=== PATIENT | male | born 1965 | race Caucasian/White ===

== ENCOUNTER 2020-04-08 20:22 | Observation (INO) | payer OTHER ==
[~2020-04-08] VITALS: Ht 170.2 cm; Wt 86.2 kg
[2020-04-09 06:17] LABS: BUN/CREATININE RATIO 16 (0-10)
== END 2020-04-09 20:01 | disposition short-term general hospital (02) ==
LOC: MED SURG 4 20:22
PROVIDERS: ADMIT Internal Medicine
PROC: 4A023N7 Measurement of Cardiac Sampling and Pressure, Left Heart, Percutaneous Approach (ICD-10-PCS; principal; 2020-04-09)
PROC: B2111ZZ Fluoroscopy of Multiple Coronary Arteries using Low Osmolar Contrast (ICD-10-PCS; 2020-04-09)
PROC: B2151ZZ Fluoroscopy of Left Heart using Low Osmolar Contrast (ICD-10-PCS; 2020-04-09)
PROC: B2181ZZ Fluoroscopy of Left Internal Mammary Bypass Graft using Low Osmolar Contrast (ICD-10-PCS; 2020-04-09)
DX: I21.4 Non-ST elevation (NSTEMI) myocardial infarction (principal); I25.110 Atherosclerotic heart disease of native coronary artery with unstable angina pectoris; F17.290 Nicotine dependence, other tobacco product, uncomplicated; Z20.822 Contact with and (suspected) exposure to COVID-19
CPT/HCPCS: 36415; 75710; 80048; 80061; 82550; 82553; 84439; 84443; 84484; 93005; 96372; 99152; 99153; C1760; C1769; G0378; G0379; J0461; J1644; J1650; J2250; J3010; Q9967

== ENCOUNTER 2021-11-06 12:05 | Inpatient (IN) | payer OTHER ==
[~2021-11-06] VITALS: Ht 170.2 cm; Wt 81.6 kg
[2021-11-06 12:44] LABS: HEMOGLOBIN 13.8 gm/dl (14.0-17.5); RED BLOOD COUNT 4.53 M/UL (4.20-5.50); WHITE BLOOD COUNT 7.5 K/UL (4.5-11.0)
[2021-11-06 13:05] LABS: BUN/CREATININE RATIO 19 (0-10)
[2021-11-06] MEDS ORDERED: ATORVASTATIN CA20 MG PO (16:44)
[2021-11-06] MEDS ORDERED: LORATADINE10 MG PO (16:48)
[2021-11-06] MEDS ORDERED: ONE-A-DAY MEN'1 EACH PO (16:48)
[2021-11-06] MEDS ORDERED: ASPIRIN EC81 MG PO (16:48)
[2021-11-06] MEDS ORDERED: HYDROCODON-ACE1 EAC6 PO (16:49)
[2021-11-07 06:42] LABS: HEMOGLOBIN 13.5 gm/dl (14.0-17.5); RED BLOOD COUNT 4.48 M/UL (4.20-5.50); WHITE BLOOD COUNT 8.4 K/UL (4.5-11.0)
[2021-11-07 07:11] LABS: BUN/CREATININE RATIO 18 (0-10)
[2021-11-10 07:29] LABS: HEMOGLOBIN 14.6 gm/dl (14.0-17.5); RED BLOOD COUNT 4.91 M/UL (4.20-5.50); WHITE BLOOD COUNT 8.7 K/UL (4.5-11.0)
[2021-11-10 08:41] LABS: BUN/CREATININE RATIO 22 (0-10)
[2021-11-10] MEDS ORDERED: ISOSORBIDE MONO30 MG PO (13:47)
== END 2021-11-10 19:35 | disposition home or self-care (01) | DRG 287 ==
LOC: ER1 12:05 → MED SURG 4 14:30 → CDU 14:30 → MED SURG 4 16:49
PROVIDERS: Internal Medicine; Physician Assistant; ADMIT Internal Medicine
PROC: B24BZZZ Ultrasonography of Heart with Aorta (ICD-10-PCS; 2021-11-07)
PROC: B2111ZZ Fluoroscopy of Multiple Coronary Arteries using Low Osmolar Contrast (ICD-10-PCS; principal; 2021-11-10)
DX: R07.89 Other chest pain (principal); E11.9 Type 2 diabetes mellitus without complications; Z20.822 Contact with and (suspected) exposure to COVID-19; E78.5 Hyperlipidemia, unspecified; F17.290 Nicotine dependence, other tobacco product, uncomplicated; I25.10 Atherosclerotic heart disease of native coronary artery without angina pectoris; I10 Essential (primary) hypertension; Z79.01 Long term (current) use of anticoagulants; Z79.82 Long term (current) use of aspirin; Z95.1 Presence of aortocoronary bypass graft; Z87.09 Personal history of other diseases of the respiratory system; Z79.4 Long term (current) use of insulin; Z88.8 Allergy status to other drugs, medicaments and biological substances; Z82.49 Family history of ischemic heart disease and other diseases of the circulatory system; Z83.3 Family history of diabetes mellitus
CPT/HCPCS: ECHO; 36415; 71045; 78452; 80048; 80053; 80061; 82550; 82553; 83036; 84484; 85025; 93005; 93017; 93306; 99152; 99153; A9502; C1769; G0378; J1644; J2250; J2785; J3010; Q9967